=== PATIENT | male | born 1985 | race American Indian/Alaskan Native ===

== ENCOUNTER 2021-04-14 03:34 | Emergency (ER) | payer BC ==
[2021-04-14 04:13] VITALS: BP 170/110
[2021-04-14] MEDS ORDERED: ASPIRIN 325 MG TAB PO ONE (04:17)
--- NOTE | 2021-04-14 04:52 | XRay Report ---
XR chest routine 2V INDICATION / CLINICAL INFORMATION: chest pain. COMPARISON: None available. FINDINGS: SUPPORT DEVICES: None. HEART /PULMONARY VASCULATURE: No significant abnormality. LUNGS / PLEURA: No significant pulmonary or pleural abnormality. No pneumothorax. ADDITIONAL FINDINGS: No significant additional findings. IMPRESSION: 1. No acute findings. Signer Name: Kvng Ovalles MD Signed: 04/14/2021 4:47 AM Workstation Name: [id number]
[2021-04-14 05:10] LABS: Basophils % (Auto) 0.2 % (0.0-1.8); Eosinophils % (Auto) 0.6 % (0.0-4.3); Hematocrit 48.1 % (35.5-45.6); Hemoglobin 15.9 gm/dl (11.8-15.2); Lymphocytes # (Auto) 1.5 K/mm3 (1.2-5.4); Mean Corpuscular HGB Conc 33 % (32-34); Mean Corpuscular Volume 89 fl (84-94); Monocytes # (Auto) 0.4 K/mm3 (0.0-0.8); Monocytes % (Auto) 8.8 % (0.0-7.3); Platelet Count 179 K/mm3 (140-440); Red Blood Count 5.44 M/mm3 (3.65-5.03); Red Cell Distribution Width 13.5 % (13.2-15.2)
[2021-04-14 05:31] LABS: Alanine Aminotransferase 30 units/L (7-56); Albumin 4.7 g/dL (3.9-5); BUN/Creatinine Ratio 12; Blood Urea Nitrogen 13 mg/dL (9-20); Calcium 9.9 mg/dL (8.4-10.2); Hemolysis Index 10
--- NOTE | 2021-04-16 17:51 | Electrocardiograph Report ---
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
== END 2021-04-14 13:31 | disposition left against medical advice (07) ==
LOC: ED 03:34
DX: R07.89 Other chest pain (principal); Z53.21 Procedure and treatment not carried out due to patient leaving prior to being seen by health care provider
CPT/HCPCS: 36415; 71046; 80053; 84484; 85025; 93005